=== PATIENT | female | born 1935 | race Caucasian/White ===

== ENCOUNTER → 2017-05-22 | Outpatient (CLI) | payer MEDICARE, BC ==
[~2017-05-22] MED LIST: AMBI5TAB PO; APIX5TAB PO; LORA-392 PO; LORA0.5T PO; METO50TA PO; MMW SWISH-SPIT; SIMV20 PO
[2017-05-22 13:17] LABS: ALT (GPT) 20 U/L (10-53); ANION GAP 6 MEQ/L (5-15); AST (GOT) 20 U/L (15-37); BICARBONATE 30.8 MEQ/L (21.0-32.0); BLOOD UREA NITROGEN 11 MG/DL (7-18); CHLORIDE 102 MEQ/L (98-107); GLOMERULAR FILTRATION RATE 62 ML/MIN (>89); GLUCOSE,FASTING 81 MG/DL (74-99); POTASSIUM 4.6 MEQ/L (3.5-5.1); SODIUM (NA) 139 MEQ/L (136-145)
[2017-05-22 13:20] LABS: ALKALINE PHOSPHATASE 88 U/L (45-117); HDL CHOLESTEROL 62.5 MG/DL (40.0-60.0); LDL CHOLESTEROL 58 MG/DL (0-99); TOTAL BILIRUBIN ADULT 0.8 MG/DL (0.2-1.0)
== END ==
LOC: PLAB 08:17
PROVIDERS: ATTEND Internal Medicine Interventional Cardiology
DX: E78.2 Mixed hyperlipidemia (principal); Z79.899 Other long term (current) drug therapy
CPT/HCPCS: 36415; 80053; 80061; 82248

== ENCOUNTER 2017-07-30 12:03 | Emergency (ER) | payer MEDICARE, BC ==
[~2017-07-30] VITALS: Ht 162.6 cm; Wt 69.0 kg
[2017-07-30 12:15] VITALS: BP 107/66; PULSE 104; RESP 16; TEMP 97.7; O2SAT 95
[2017-07-30 12:38] VITALS: BP 107/66; PULSE 104; RESP 16; TEMP 97.7; O2SAT 95
[2017-07-30] MEDS ORDERED: LORA0.5T PO (12:57)
[2017-07-30] MEDS ORDERED: APIX5TAB PO (12:57)
[2017-07-30] MEDS ORDERED: AMBI10TA PO (12:57)
[2017-07-30] MEDS ORDERED: METO50TA PO (12:57)
--- NOTE | 2017-07-30 13:06 | PD ---
HPI Chief Complaint: ENT Complaint Time Seen by Provider: 13:03 Travel History International Travel<30 days: No Contact w/Intl Traveler<30days: No Traveled to known affect area: No History of Present Illness HPI 82-year-old female patient with history of atrial fibrillation currently on Eliquis, presents to the ER today because she has had several days' history of nausea, not feeling well, having urinary frequency, and a sore throat. She denies any vomiting, abdominal pains, coughing, fevers, or any other symptoms. She does not know sick contacts. Modifying Factors: None Associated Signs & Symptoms: Nausea, urinary frequency, sore throat Risk Factors: None PFSH Past Medical History Hx Anticoagulant Therapy: Yes Arthritis: Yes Atrial Fibrillation: Yes Cancer: No Cardiovascular Problems: Yes (a-fib) High Cholesterol: Yes Chest Pain: Yes Diabetes: No Diminished Hearing: No GERD: Yes Glaucoma: No Hepatitis: No Hiatal Hernia: No Hypertension: No Medical other: Yes (ARTHRITIS) Respiratory: No Thyroid Disease: No : 3 Para: 3 Past Surgical History Abdominal Surgery: Yes Appendectomy: Yes Eye Surgery: Yes (RIGHT CATARACT EXTRACT.) Pacemaker: No Tonsillectomy: Yes Other Surgery: Yes (APPENDECTOMY, TONSILECTOMY) Social History Alcohol Use: Yes (RARELY) Tobacco Use: No Substance Use: No Allergies-Medications (Allergen,Severity, Reaction): Coded Allergies: No Known Allergies (Unverified Adverse Reaction, Unknown, 07/30/17) Reported Meds & Prescriptions Reported Meds & Active Scripts Active Reported Ambien (Zolpidem Tartrate) 10 Mg Tab 10 Mg PO HS PRN Lorazepam 0.5 Mg Tab 0.5 Mg PO Q4H PRN Eliquis (Apixaban) 5 Mg Tab 5 Mg PO BID Metoprolol Tartrate 50 Mg Tab 50 Mg PO BID Review of Systems Except as stated in HPI: all other systems reviewed are Neg Physical Exam Narrative GENERAL: Well-developed elderly white female patient currently in mild distress. Awake and oriented 3. SKIN: Focused skin assessment warm/dry. HEAD: Atraumatic. Normocephalic. EYES: Pupils equal and round. No scleral icterus. No injection or drainage. ENT: Mucosa pink and moist. No erythema or exudates. No uvular edema. No uvular , palatal, or tonsillar deviation. Airway patent. NECK: Trachea midline. No JVD. No significant lymphadenopathy. Supple. CARDIOVASCULAR: Irregularly irregular. No murmur appreciated. RESPIRATORY: No accessory muscle use. Clear to auscultation. Breath sounds equal bilaterally. GASTROINTESTINAL: Abdomen soft, non-tender, nondistended. Hepatic and splenic margins not palpable. MUSCULOSKELETAL: No obvious deformities. No clubbing. No cyanosis. No edema. NEUROLOGICAL: Awake and alert. No obvious cranial nerve deficits. Motor grossly within normal limits. Normal speech. PSYCHIATRIC: Appropriate mood and affect; insight and judgment normal. Data Data Last Documented VS Vital Signs Date Time Temp Pulse Resp B/P (MAP) Pulse Ox O2 Delivery O2 Flow Rate FiO2 07/30/17 12:38 97.7 104 16 107/66 (80) 95 07/30/17 12:15 Room Air Orders Orders Urinalysis - C+S If Indicated (07/30/17 13:03) Group A Rapid Strep Screen (07/30/17 13:03) Influenzae A/B Antigen (07/30/17 13:03) Strep Culture (Group A) (07/30/17 13:10) Ed Discharge Order (07/30/17 13:58) Labs Laboratory Tests Test 07/30/17 13:05 Urine Collection Type CLEAN CATCH Urine Color YELLOW Urine Turbidity CLEAR Urine pH 5.5 Urine Specific [place] 1.012 Urine Protein NEG mg/dL Urine Glucose (UA) NEG mg/dL Urine Ketones NEG mg/dL Urine Occult Blood MOD Urine Nitrite NEG Urine Bilirubin NEG Urine Leukocyte Esterase NEG Urine RBC 10-14 /hpf Urine Squamous Epithelial Cells 0-5 /hpf Urine Amorphous Sediment FEW Microscopic Urinalysis Comment CULT NOT INDICATED Urine Collection Time 1305 MDM Medical Decision Making Medical Screen Exam Complete: Yes Emergency Medical Condition: Yes Medical Record Reviewed: Yes Interpretation(s) Laboratory Tests Test 07/30/17 13:05 Urine Occult Blood MOD (NEG) Urine RBC 10-14 /hpf (0-3) Differential Diagnosis Viral syndrome versus UTI versus influenza versus strep pharyngitis Narrative Course UA shows blood but no signs of UTI. Rapid strep is negative and influenza is negative. At this point, she is well-appearing and vital signs are stable. She has a heart rate of 80 bpm when I rechecked her heart rate at 1:45 PM. At this point, my plan would be to release her with symptomatic relief for discomfort and follow-up with primary care doctor. Return for worsening in symptoms as necessary. The plan has been discussed with her and she states understanding. Diagnosis Primary Impression: Viral syndrome Med/Other Pt SpecificInfo: Prescription(s) given Scripts Benzocaine-Menthol Lozenge (Cepacol Sore Throat Lozenge) 15-3.6 Mg Lozg 1 LOZENGE PO Q2H Y for SORE THROAT, #1 CONTAINER 0 Refills Prov: Savannah Vanegas MD 07/30/17 Disposition: 01 DISCHARGE HOME Condition: Stable Savannah Vanegas MD Jul 30, 2017 13:06
[2017-07-30 13:19] LABS: BLOOD, URINE MOD (NEG); GLUCOSE,URINE NEG (NEG); KETONE, URINE NEG (NEG); NITRITE,URINE NEG (NEG); PH, URINE 5.5 (5.0-8.5)
[2017-07-30 13:38] LABS: METHOD OF COLLECTION CLEAN CATCH; URINE COLOR YELLOW (YELLW/STRAW)
[2017-07-30 13:39] LABS: COMMENT (UR) CULT NOT INDICATED; CULTURE IF INDICATED CULT NOT INDICATED; SQUAMOUS EPITHELIAL CELL URINE 0-5 /hpf (0-5)
[2017-07-30] MEDS ORDERED: BENZ1LOZ5 PO (13:59)
== END 2017-07-30 14:29 | disposition home or self-care (01) ==
LOC: PHED 12:03
DX: B34.9 Viral infection, unspecified (principal); I48.91 Unspecified atrial fibrillation; Z79.01 Long term (current) use of anticoagulants
CPT/HCPCS: 81001; 87081; 87804; 87880; 99283

== ENCOUNTER → 2018-02-12 | Outpatient (CLI) | payer MEDICARE, BC ==
[~2018-02-12] MED LIST changes: +AMBI10TA PO; -AMBI5TAB PO; +BENZ1LOZ5 PO; -LORA-392 PO; -MMW SWISH-SPIT; -SIMV20 PO
[2018-02-12 14:12] LABS: AUTOMATED NEUTROPHIL # 2.6 TH/MM3 (1.8-7.7); BASOPHIL % 0.8 % (0.0-2.0); EOSINOPHIL # 0.3 TH/MM3 (0-0.4); EOSINOPHIL % 4.5 % (0.0-4.0); HEMATOCRIT 44.2 % (35.0-46.0); HEMOGLOBIN 14.6 GM/DL (11.6-15.3); LYMPH % 42.1 % (9.0-44.0); LYMPHOCYTE # 2.3 TH/MM3 (1.0-4.8); MEAN CORPUSCULAR HEMOGLOBIN 30.8 PG (27.0-34.0); MEAN CORPUSCULAR HGB CONC 33.1 % (32.0-36.0); MEAN PLATELET VOLUME 10.8 FL (7.0-11.0); MONOCYTE # 0.3 TH/MM3 (0-0.9); NEUT % 46.6 % (16.0-70.0); PLATELET COUNT 182 TH/MM3 (150-450); RED BLOOD COUNT 4.75 MIL/MM3 (4.00-5.30); WHITE BLOOD COUNT 5.5 TH/MM3 (4.0-11.0)
[2018-02-12 14:16] LABS: AST (GOT) 21 U/L (15-37); BICARBONATE 28.5 MEQ/L (21.0-32.0); BLOOD UREA NITROGEN 15 MG/DL (7-18); CALCIUM 8.9 MG/DL (8.5-10.1); CHLORIDE 105 MEQ/L (98-107); CREATININE 0.94 MG/DL (0.50-1.00); GLOMERULAR FILTRATION RATE 57 ML/MIN (>89); GLUCOSE,FASTING 86 MG/DL (74-99); SODIUM (NA) 140 MEQ/L (136-145)
[2018-02-12 14:17] LABS: ALT (GPT) 23 U/L (10-53); CHOLESTEROL 196 MG/DL (120-200)
[2018-02-12 14:26] LABS: ALKALINE PHOSPHATASE 92 U/L (45-117); CHOLESTEROL/ HDL RATIO 3.12 RATIO; FREE T4 1.14 NG/DL (0.76-1.46); HDL CHOLESTEROL 62.7 MG/DL (40.0-60.0); LDL CHOLESTEROL 121 MG/DL (0-99); TOTAL BILIRUBIN ADULT 0.8 MG/DL (0.2-1.0); TOTAL PROTEIN 7.3 GM/DL (6.4-8.2); TRIGLYCERIDES 61 MG/DL (42-150)
== END ==
LOC: PLAB 09:52
PROVIDERS: ATTEND Family Medicine
DX: E78.2 Mixed hyperlipidemia (principal); I48.2 Chronic atrial fibrillation
CPT/HCPCS: 36415; 80053; 80061; 84439; 84443; 85025